=== PATIENT | female | born 1940 | race Caucasian/White ===

== ENCOUNTER → 2017-05-20 | Outpatient (CLI) | payer MEDICARE, BC ==
[~2017-05-20] MED LIST: BACTRIM DS1 TAB PO; BYSTOLIC5 MG PO; CELEXA20 MG PO; DELTASONE5 MG PO; ECOTRIN325 MG PO; ELIQUIS5 MG PO; IMDUR30 MG PO; LASIX20 MG PO; NEURONTIN100 MG PO; NYSTATIN1 EAC1 TOP; PLAVIX75 MG PO; PRALUENT P75 MG/1 ML SUB-Q; PROTONIX40 MG PO; STOOL SOFTENER100 MG PO; ZYLOPRIM100 MG PO; ZYLOPRIM300 MG PO; ZYRTEC10 MG PO
== END | disposition disaster alternative care site (69) ==
LOC: GAMB 07:20
DX: R07.89 Other chest pain (principal); R42 Dizziness and giddiness; M79.602 Pain in left arm; Z85.3 Personal history of malignant neoplasm of breast; Z79.52 Long term (current) use of systemic steroids; Z79.899 Other long term (current) drug therapy; Z88.5 Allergy status to narcotic agent
CPT/HCPCS: A0425; A0427

== ENCOUNTER 2017-06-21 08:02 | Inpatient (IN) | payer MEDICARE, BC ==
[~2017-06-21] VITALS: Ht 160 cm; Wt 95.5 kg
--- NOTE | ~2017-06-21 | HP ---
PATIENT'S NAME: LAILA LUNA [facility] AGE: 77 Y [address] ROOM: [place] [address] LOCATION: GPCU ADMIT DATE: 06/21/2017 History & Physical DISCHARGE DATE: FAMILY PHYSICIAN: Radha Elizondo MD ATTENDING PHYSICIAN: Yung Dutta DATE OF SERVICE: DICTATED BY: Miguel Carmona, Medical Student. CHIEF COMPLAINT: Mrs. Laila Luna is a 77-year-old female admitted to the emergency department at 8 a.m. this morning for left leg pain and swelling. HISTORY OF PRESENT ILLNESS: Her leg started becoming swollen last evening and then woke up this morning, and it was painful, more swollen, and purple. She did say she did get back 2 weeks ago from [place] where she was in a car for 5-1/2 days. She reports shortness of breath yesterday, but none this morning. The patient states that the swelling and pain have significantly improved since admission to the emergency department and hospital. She does say her left leg feels tight, but the swelling and discoloration have significantly improved since 8 a.m. this morning. She has been started on heparin and given Tylenol. EKG has been ordered, and a V/Q scan has been ordered in the emergency department. Due to her kidney function, the CT, PE protocol, is contraindicated at this time. PAST MEDICAL HISTORY: Significant for acute myocardial infarction in 2008; atrial fibrillation; breast cancer in 2009; coronary artery disease, coronary artery bypass graft in 2014; chronic renal disease, stage 3, in 2014; history of a DVT in the right leg; history of osteoarthritis; gout; hyperlipidemia; hypertension; colon cancer in 2011; polyneuropathy; and type 2 diabetes without complications. PAST SURGICAL HISTORY: 1. Angiography in 2015. 2. Ankle surgery in 2013. 3. Appendectomy at age 5. 4. Cholecystectomy. 5. Colon resection in 2011. 6. Colonoscopy annually. 7. Coronary artery bypass graft in 2008 and 2016. 8. Hysterectomy in 1983. 9. Knee replacement in 2012. [facility] 77 Y [address] ROOM: [place] [address] LOCATION: GPCU ADMIT DATE: 06/21/2017 History & Physical DISCHARGE DATE: FAMILY PHYSICIAN: Radha Elizondo MD ATTENDING PHYSICIAN: Yung Dutta 10. Knee surgery in 2013. 11. Rotator cuff repair. 12. Hysterectomy in 1983. 13. Tonsillectomy and adenectomy as a child. 14. Varicose vein surgery in 2008. FAMILY HISTORY: Alcoholism in her father. Pancreatic cancer in her brother. Unspecified cancer in her mother. Father of myocardial infarction at 45. History of stroke in grandmother, maternal. SOCIAL HISTORY: Alcohol consumption: Drinks a glass of wine occasionally. She is a high school graduate. She is . She has never used tobacco. MEDICATIONS: See medication list. The patient has been started on heparin in the emergency department. ALLERGIES: PERCOCET, FOSAMAX, AUGMENTIN, CODEINE, MORPHINE, AND NSAIDS. REVIEW OF SYSTEMS: Negative other than as stated in the HPI. PHYSICAL EXAMINATION: GENERAL: The patient is alert and oriented x4. Pleasant and comfortably resting. HEENT: Atraumatic, normocephalic. NECK: Supple with no adenopathy. CARDIOVASCULAR: Regular rate and rhythm with a 2/6 systolic murmur. LUNGS: Clear to auscultation bilaterally. No wheezes, rales, or rhonchi. EXTREMITIES: Trace edema on the left with mild cyanosis, and slight edema up to the groin on the left. Homans sign is negative. Peripheral pulses are 2+/4. ABDOMEN: Nontender and nondistended. Obese. Bowel sounds x4. Soft. SKIN: Bilateral surgical scars on knee. Stasis dermatitis on left. Skin tight on the left leg. NEUROLOGICAL: [place] Coma score 15. VITAL SIGNS: Pulse 89, respiratory rate 18, temperature 97, and blood pressure 118/76. LABORATORY DATA: Sodium 140, potassium 3.8, chloride 108, CO2 of 23, BUN high at 29, creatinine high at 1.5, and glucose high at 151. White blood cells 8.4, hemoglobin 13.5, PATIENT'S NAME: LAILA LUNA [facility] AGE: 77 Y [address] ROOM: [address] [address] LOCATION: GPCU ADMIT DATE: 06/21/2017 History & Physical DISCHARGE DATE: FAMILY PHYSICIAN: Radha Elizondo MD ATTENDING PHYSICIAN: Yung Dutta hematocrit 40.6, and platelets low at 126. CRP was elevated at 1.47. Albumin low at 3.2. Lactate high at 2.3. GFR estimated low at 33. MCV high at 101.8. ASSESSMENT AND PLAN: 1. Presumptive deep venous thrombosis in left leg with edema and pain. Continue heparin. EKG ordered. V/Q scan ordered. Bedside venous Doppler ordered. 2. History of coronary artery disease and coronary artery bypass. 3. Chronic kidney disease. 4. Osteoarthritis. 5. Gout. 6. Hyperlipidemia. 7. Hypertension. 8. Polyneuropathy. 9. Type 2 by diabetes without complication. MD HEATHER LUBIN/modl /[id number] D: T: HISTORY & PHYSICAL
--- NOTE | ~2017-06-21 | ENPV ---
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 There is thrombus in the left greater saphenous vein. Calf veins were difficult to visualize. Procedure Type of Study: Veins:Lower Extremities DVT Study, Lower Extremity Left. Indications for Study:Swelling of Limb. Patient Status:STAT. Study Location:ER. Technical Quality:Adequate visualization. - Preliminary reported to:Dr. Rush. Velocities are measured in cm/s ; Diameters are measured in cm Right Lower Extremities DVT Study Measurements Right 2D and Doppler Measurements + + + + +------+------+ + !Location !Visualized!Compressibility!Thrombosis!Signal!Reflux!Reflux ! ! ! ! ! ! ! !(sec) ! + + + + +------+------+ + !GSV Thigh !Yes !Yes !None !Phasic! ! ! + + + + +------+------+ + !Common !Yes !Yes !None !Phasic! ! ! !Femoral ! ! ! ! ! ! ! + + + + +------+------+ + Left Lower Extremities DVT Study Measurements Left 2D and Doppler Measurements +---------+ + + + +------+--------+ !Location !Visualized!Compressibility!Thrombosis!Signal !Reflux!Reflux ! ! ! ! ! ! ! !(sec) ! +---------+ + + + +------+--------+ !GSV Thigh!Yes !Partial !Sub-acute !Phasic !No ! ! +---------+ + + + +------+--------+ !Common !Yes !No !Sub-acute !Diminished!No ! ! !Femoral ! ! ! ! ! ! ! +---------+ + + + +------+--------+ !Prox !Yes !No !Sub-acute !Absent !No ! ! !Femoral ! ! ! ! ! ! ! +---------+ + + + +------+--------+ !Mid !Yes !No !Sub-acute !Absent !No ! ! !Femoral ! ! ! ! ! ! ! +---------+ + + + +------+--------+ !Dist !Yes !Partial !Sub-acute !Diminished!No ! ! !Femoral ! ! ! ! ! ! ! +---------+ + + + +------+--------+ !Popliteal!Yes !No !Sub-acute !Absent !No ! ! +---------+ + + + +------+--------+ !PTV !Yes ! ! ! ! ! ! +---------+ + + + +------+--------+ !Peroneal !Yes ! ! ! ! ! ! +---------+ + + + +------+--------+ Signature dtt: ROYCE DELACRUZ: 06/21/17 0839 Physician Self Edit
--- NOTE | ~2017-06-21 | ER ---
PATIENT'S NAME: LJ [facility] AGE: 77 Y [address] ROOM: [place] [address] LOCATION: GPCU ADMIT DATE: 06/21/2017 ER/Outpatient Report DISCHARGE DATE: FAMILY PHYSICIAN: Radha Elizondo MD ATTENDING PHYSICIAN: Yung Dutta Time of Arrival: 0802 hours. Time of Evaluation/Seen: 0810 hours. IDENTIFICATION: A 77-year-old female. CHIEF COMPLAINT: Left leg swelling and pain. HISTORY OF PRESENT ILLNESS: The patient is a 77-year-old female, who noted left leg pain and swelling last night. She has a bluish discoloration to her leg which just started today. The patient has a history of prior DVT on the right side several years ago. She was anticoagulated for some time, but not currently. She also recently returned from [place] a couple of weeks ago by car, but she states they did stop, but maybe not every couple of hours. She has no shortness of breath, although her daughter states she was short of breath yesterday when they went to the mall. PAST MEDICAL HISTORY: ALLERGIES: FOSAMAX AND NARCOTICS. CURRENT MEDICATIONS: 1. Bactrim 1 daily. 2. Full strength aspirin daily. 3. Clopidogrel 75 mg daily. 4. Isosorbide mononitrate 30 mg b.i.d. 5. Bystolic 5 mg daily. 6. Furosemide 20 mg daily. 7. Prednisone 5 mg 1/2 tablet daily. 8. Allopurinol 400 mg daily. 9. Citalopram 20 mg daily. 10. Pantoprazole 40 mg daily. 11. Generic stool softener daily. 12. Gabapentin 100 mg t.i.d. 13. Then she receives Praluent 75 mg shot once every 2 weeks for hyperlipidemia. PATIENT'S NAME: [facility] AGE: 77 Y [address] ROOM: [place] [address] LOCATION: GPCU ADMIT DATE: 06/21/2017 ER/Outpatient Report DISCHARGE DATE: FAMILY PHYSICIAN: Radha Elizondo MD ATTENDING PHYSICIAN: Yung Dutta 14. Cetirizine 10 mg daily. MEDICAL PROBLEMS: 1. Coronary artery disease. 2. Hypertension. 3. Previous history of right DVT. 4. Breast cancer, status post left mastectomy. 5. Neuropathy. 6. Colon cancer. 7. Left hip surgery. 8. Osteoarthritis and gout. 9. History of MRSA. PAST SURGICAL HISTORY: Prior Surgeries: 1. Appendectomy. 2. Cholecystectomy. 3. Colon resection. 4. Colonoscopy. 5. CABG. 6. Hysterectomy. 7. Right knee replacement. 8. Left knee replacement. 9. Rotator cuff repair on the right side. 10. Salpingo-oophorectomy. 11. Tonsillectomy. 12. Adenoidectomy. 13. Varicose vein surgery. 14. Left mastectomy. SOCIAL HISTORY: The patient is . Lives here in [place]. Tobacco use, denies. Alcohol use, denies. Drug use, denies. FAMILY HISTORY: Brother with pancreatic cancer. Father with alcoholism and [place] at age 45. Maternal grandmother with stroke. REVIEW OF SYSTEMS: All systems reviewed and negative other than what is noted in the HPI. PHYSICAL EXAMINATION: VITAL SIGNS: Height 5 feet 3 inches and weight 95.7 kg. Blood pressure 137/65, pulse 74, respiratory rate 20, temperature 97.7, and saturations 95% on room air. PATIENT'S NAME: ALEXANDRE CALHOUN [facility] AGE: 77 Y [address] ROOM: [id number] [place], [place] [address] [facility] ADMIT DATE: 06/21/2017 ER/Outpatient Report DISCHARGE DATE: FAMILY PHYSICIAN: Radha Elizondo MD ATTENDING PHYSICIAN: Yung Dutta GENERAL: A 77-year-old female, in no acute distress. HEENT: Head; normocephalic and atraumatic. Ears; TMs translucent in both ears. Eyes; pupils equal and reactive to light and accommodation. Extraocular movements intact. Nose; mucosa pink. No lesions or drainage. Mouth; no lesions. Pharynx, benign. NECK: Supple. No lymphadenopathy. LUNGS: Clear to auscultation. Breath sounds are equal. No rhonchi, wheezes, or rales. HEART: Regular rate and rhythm. No murmur, rub, or gallop. ABDOMEN: Bowel sounds present. Soft, nondistended. No hepatosplenomegaly. No palpable masses. Nontender. SKIN: [place], warm, and dry. No lesions or rashes noted. NEUROLOGIC: The patient is alert and oriented x4. Cranial nerves 2 through 12 grossly intact. Motor strength 5/5 throughout. Sensation is intact to light touch. The patient has left lower extremity edema with calf tenderness and a bluish discoloration to her left lower leg. She does have a good dorsalis pedis pulse and the sensation is slightly decreased compared to the right. EMERGENCY DEPARTMENT COURSE: The patient did not want anything for pain initially, later did request some Tylenol for pain control. Sodium 140, potassium 3.8, chloride 108, CO2 of 23, BUN 29, creatinine 1.5, previous creatinine in 2014 was 1.0, and blood sugar 151. Liver enzymes normal. CRP 1.47. Hemoglobin 13.5, hematocrit 40.6, and platelets 126,000. Previous platelet count 177,000 in 2013, white blood cell count 8.4. INR 1.02. Lactate 2.3. Sedimentation rate 19. Procalcitonin is less than 0.05. V/Q scan ordered and those results are pending. Doppler reveals DVT significant in the left lower extremity. IMPRESSION AND PLAN: 1. Deep venous thrombosis, left lower extremity. The patient was initiated on heparin per deep venous thrombosis protocol. The patient has no contraindications. 2. Shortness of breath. V/Q scan ordered. The patient was initiated on heparin. 3. Coronary artery disease. 4. Chronic kidney disease with acute kidney injury. 5. Mild thrombocytopenia. 6. Osteoarthritis. 7. Hyperlipidemia. 8. Hypertension. 9. Polyneuropathy. PATIENT'S NAME: ALEXANDRE CALHOUN [facility] AGE: 77 Y [address] ROOM: [id number] [place] [id number] LOCATION: GPCU ADMIT DATE: 06/21/2017 ER/Outpatient Report DISCHARGE DATE: FAMILY PHYSICIAN: Radha Elizondo MD ATTENDING PHYSICIAN: Yung Dutta ANGE CARTY MD CAR/modl /[id number] d: 06/21/17 1645 t: 06/22/17 1735, OUTPATIENT REPORT
--- NOTE | ~2017-06-21 | DS ---
PATIENT'S NAME: LAILA CALHOUN [facility] AGE: 77 Y [address] ROOM: [id number] [place] [address] LOCATION: GPCU ADMIT DATE: 06/21/2017 Discharge Summary DISCHARGE DATE: 06/22/2017 FAMILY PHYSICIAN: Radha Elizondo MD ATTENDING PHYSICIAN: Yung Dutta PRINCIPAL DIAGNOSES: 1. Acute left lower extremity deep venous thrombosis from the ankle all the way to the groin. 2. Obesity. 3. Coronary artery disease. 4. Diabetes mellitus. 5. Hypertension. 6. Gout. 7. Severe degenerative joint disease. 8. History of colon cancer. 9. History of breast cancer. 10. Chronic kidney disease with GFR in the low 30s at baseline. 11. Hyperlipidemia. SUMMARY: Laila is a 77-year-old female, who recently was in a motor vehicle trip and came in with left leg turning blue, swollen, and painful. She was noted to have DVT all the way up to the groin. She was admitted by Dr. Dutta, placed on IV heparin. See his H and P. She has had prior DVT in the past, was on Coumadin, and really does not want to go on Coumadin at this point. She has a significant history of coronary artery disease and did have a stent within the last one year, but it has been well over 6 months. She is up and around here. Her vital signs are stable. She is not hypoxic and V/Q scan showed no evidence of PE. At this time, she is medically stable and wanting to go home. Did discuss the different oral anticoagulants that are available. She really does not want to go on Coumadin, so of the other anticoagulants Eliquis appears to be the most appropriate as her kidney function is stage 3 chronic kidney disease, on the lower end of the 30s of her GFR. DISMISSAL: Laila was dismissed in stable condition on 06/22/2017. Her diet will be diabetic/cardiac prudent as tolerated. Activity as tolerated. She is to elevate that leg. DISMISSAL MEDICATIONS: New medications are: 1. Eliquis 10 mg b.i.d. for 7 days and then 5 mg b.i.d. thereafter. We will plan a total of 6 months of therapy and then re-evaluate at that time. 2. She is to discontinue aspirin and is not to have any travel due to that blood clot, note written for that. 3. Her other home medications, which will be continued include:. PATIENT'S NAME: LAILA CALHOUN [facility] AGE: 77 Y [address] ROOM: [place] [address] LOCATION: GPCU ADMIT DATE: 06/21/2017 Discharge Summary DISCHARGE DATE: 06/22/2017 FAMILY PHYSICIAN: Radha Elizondo MD ATTENDING PHYSICIAN: Yung Dutta a. Zyloprim 300 + 100 mg daily for total of 400 mg a day. b. Celexa 20 mg daily. c. Plavix 75 mg daily. d. Stool softener 100 mg a day. e. Lasix 20 mg daily. f. Neurontin 200 mg t.i.d. g. Imdur 30 mg b.i.d. h. Cetirizine 10 mg daily. i. Bystolic 5 mg daily. j. Mycostatin powder b.i.d. to skin folds. k. Protonix 40 mg daily. l. Deltasone 2.5 mg daily. m. Bactrim DS 1 daily. n. Praluent 75 mg subcutaneously every 14 days. FOLLOWUP: She will follow up with me in 1 week to recheck, sooner if problems. Prognosis is fair to good. MD RAFA BELTRAN/debora /[id number] d: 06/23/17 0014 t: 06/23/17 0833, DISCHARGE SUMMARY
[2017-06-21 08:41] LABS: BASOPHIL % 0.5 %; EOSINOPHIL # 0.2 K/uL (0.0-0.5); EOSINOPHIL % 2.4 %; HEMATOCRIT 40.6 % (33.0-46.0); HEMOGLOBIN 13.5 g/dL (10.0-15.0); IMMATURE GRANULOCYTE # 0.1 K/uL (0.0-0.3); IMMATURE GRANULOCYTE % 0.7 %; LYMPHOCYTE # 2.1 K/uL (0.8-4.0); LYMPHOCYTE % 24.9 %; MCH 33.8 pg (27.0-34.0); MCHC 33.3 gm/dL (32.0-36.5); MCV 101.8 fl (83.0-98.0); MONOCYTE # 0.5 K/uL (0.0-1.0); MONOCYTE % 5.8 %; MPV 10.2 fl (9.4-12.4); NEUTROPHIL # (ANC) 5.5 K/uL (1.8-7.8); NEUTROPHIL % 65.7 %; NRBC % 0 /100WBC (0-0.00); PLATELET COUNT 126 K/uL (150-450); RBC 3.99 M/uL (3.50-5.50); RDW-CV 15.8 % (11.9-14.6); WBC 8.4 K/uL (4.0-11.0)
[2017-06-21 08:51] LABS: INR - (THERAPEUTIC) 1.02 (0.92-1.07); PROTIME 10.7 SECONDS (9.8-11.4); PTT 26 SECONDS (25-32)
[2017-06-21 09:06] LABS: ALBUMIN 3.2 gm/dL (3.5-5.0); ANION GAP 12.8 (10.0-19.0); CALCIUM 9.6 mg/dL (8.5-10.5); CREATININE 1.5 mg/dL (0.5-1.1); POTASSIUM 3.8 mMol/L (3.7-5.1); TOTAL BILIRUBIN 0.4 mg/dL (0.0-1.5); TOTAL PROTEIN 6.6 g/dL (6.0-8.4)
[2017-06-21] MEDS ORDERED: BACTRIM DS1 TAB PO (11:24)
[2017-06-21] MEDS ORDERED: PLAVIX75 MG PO (11:24)
[2017-06-21] MEDS ORDERED: BYSTOLIC5 MG PO (11:25)
[2017-06-21] MEDS ORDERED: IMDUR30 MG PO (11:25)
[2017-06-21] MEDS ORDERED: DELTASONE5 MG PO (11:26)
[2017-06-21] MEDS ORDERED: LASIX20 MG PO (11:26)
[2017-06-21] MEDS ORDERED: ZYLOPRIM300 MG PO (11:27)
[2017-06-21] MEDS ORDERED: ZYLOPRIM100 MG PO (11:27)
[2017-06-21] MEDS ORDERED: CELEXA20 MG PO (11:28)
[2017-06-21] MEDS ORDERED: PROTONIX40 MG PO (11:31)
[2017-06-21] MEDS ORDERED: STOOL SOFTENER100 MG PO (11:32)
[2017-06-21] MEDS ORDERED: ECOTRIN325 MG PO (11:33)
[2017-06-21] MEDS ORDERED: NEURONTIN100 MG PO (11:34)
[2017-06-21] MEDS ORDERED: ZYRTEC10 MG PO (11:34)
[2017-06-21] MEDS ORDERED: PRALUENT P75 MG/1 ML SUB-Q (11:38)
--- NOTE | 2017-06-21 11:46 | NUR ---
Pt is 77 y/o female admit for DVT left leg for . Has many allergies. See chart. Red and yellow bracelet on. CAme through ED. Hx htn,NH, CABG,CAD,DVT,hypercholest,breast and colon CA,gerd,ulcer,depression,DM-diet controlled,arthritis,cellulitis,skin ca. Pt alert and oriented x3. Resides at home with her . Daughters at bedside. Heparin running.
--- NOTE | 2017-06-21 16:16 | NUR ---
Significant Event: A/OX3, VSS ON ROOM AIR. PT. GETS UP SBA TO BATHROOM. RIGHT HAND IV HAS HEPARIN DRIP RUNNING @ 1400 UNITS/HR, NEXT PTTHP DUE NOW, WAITING FOR LAB TO REDRAW. VQ SCAN DONE WAITING ON RESULTS. HOME MEDS DONE. NO COMPLAINTS OF PAIN. BILATERAL CHERIE HOSE APPLIED. LLE HAS 2+EDEMA, BRUISED NOTED TO L)THIGH FROM US MACHINE. BILATERAL GROINS AND UNDER ABDOMINAL FOLD IS RED, NYSTATIN POWDER APPLIED. Follow up: CONTINUE WITH POC.
--- NOTE | 2017-06-22 04:24 | NUR ---
Significant Event: A/O X 3, PLEASANT AND COOPERATIVE. ALL VSS ON RA. AFEBRILE. AMBULATES STAND BY ASSIST. HEPARIN INFUSING AT 1200 UNITS/HR NEXT PTT-HP 0500. TRAMADOL GIVEN X 1 AT 2124 FOR LEFT LEG PAIN, BUT MAIN PROBLEM HAS BEEN CRAMPING IN RIGHT LEG MULTIPLE TIMES, HAVE BEEN ABLE TO ALLEVIATE IT BY MASSAGE AND FOOT MANIPULATION, PO ORAL INTAKE INCOURAGED. DIFFICULTY WITH SLEEPING, GAVE AMBIEN 5 MG AT 0110 BUT HAD MINIMAL EFFECT. Follow up:
[2017-06-22 05:18] LABS: BASOPHIL # 0.1 K/uL (0.0-0.2); BASOPHIL % 0.5 %; EOSINOPHIL # 0.2 K/uL (0.0-0.5); EOSINOPHIL % 2.5 %; HEMATOCRIT 36.5 % (33.0-46.0); HEMOGLOBIN 12.3 g/dL (10.0-15.0); IMMATURE GRANULOCYTE # 0.1 K/uL (0.0-0.3); IMMATURE GRANULOCYTE % 0.7 %; LYMPHOCYTE # 2.2 K/uL (0.8-4.0); LYMPHOCYTE % 23.2 %; MCH 33.9 pg (27.0-34.0); MCHC 33.7 gm/dL (32.0-36.5); MCV 100.6 fl (83.0-98.0); MONOCYTE # 0.7 K/uL (0.0-1.0); MONOCYTE % 7.8 %; MPV 10.4 fl (9.4-12.4); NEUTROPHIL # (ANC) 6.2 K/uL (1.8-7.8); NEUTROPHIL % 65.3 %; NRBC % 0 /100WBC (0-0.00); PLATELET COUNT 117 K/uL (150-450); RBC 3.63 M/uL (3.50-5.50); RDW-CV 15.7 % (11.9-14.6); WBC 9.5 K/uL (4.0-11.0)
[2017-06-22 05:40] LABS: CALCIUM 9.6 mg/dL (8.5-10.5); CREATININE 1.4 mg/dL (0.5-1.1)
[2017-06-22] MEDS ORDERED: NYSTATIN1 EAC1 TOP (12:42)
[2017-06-22] MEDS ORDERED: ELIQUIS5 MG PO (12:45)
--- NOTE | 2017-06-22 15:36 | NUR ---
PATIENT ALERT AND ORIENTED. VSS ON ROOM AIR. TRANSFERS SBA WITH CANE. NEW MEDICATIONS GIVEN WITH DISMISSAL INSTRUCTION. DVT PROPHYLAXIS INFORMATION GIVEN WITH DISMISSAL. IV DISCONTINUED WITHOUT COMPLICATIONS. NO FURTHER QUESTIONS. ALL BELONGINGS SENT HOME WITH FAMILY. INFORMED DAUGHTER OF MEDICATION CHANGES WHEN PATIENT GOT IN CAR.
== END 2017-06-22 15:40 | disposition disaster alternative care site (69) | DRG 301 ==
LOC: GMED 08:02 → GPCU 09:34
PROVIDERS: Family Medicine; ADMIT Obstetrics & Gynecology Obstetrics
DX: I82.412 Acute embolism and thrombosis of left femoral vein (principal); I82.432 Acute embolism and thrombosis of left popliteal vein; E11.42 Type 2 diabetes mellitus with diabetic polyneuropathy; N18.3 Chronic kidney disease, stage 3 (moderate); E78.5 Hyperlipidemia, unspecified; I12.9 Hypertensive chronic kidney disease with stage 1 through stage 4 chronic kidney disease, or unspecified chronic kidney disease; I25.10 Atherosclerotic heart disease of native coronary artery without angina pectoris; M10.9 Gout, unspecified; M19.90 Unspecified osteoarthritis, unspecified site; Z86.79 Personal history of other diseases of the circulatory system; Z95.1 Presence of aortocoronary bypass graft; Z85.3 Personal history of malignant neoplasm of breast; I25.2 Old myocardial infarction; Z86.718 Personal history of other venous thrombosis and embolism; Z79.01 Long term (current) use of anticoagulants; Z85.038 Personal history of other malignant neoplasm of large intestine; G62.9 Polyneuropathy, unspecified; E66.9 Obesity, unspecified; I82.4Y2 Acute embolism and thrombosis of unspecified deep veins of left proximal lower extremity
CPT/HCPCS: A9539; A9540; J1644; J7512